=== PATIENT | female | born 1975 | race African-American/Black ===

== ENCOUNTER 2016-09-05 00:52 | Emergency (ER) | payer OTHER ==
[~2016-09-05] VITALS: Ht 162.6 cm; Wt 73.8 kg
[~2016-09-05 00:52] MED LIST: NOHOMEMEDS
[2016-09-05 02:13] LABS: HEMATOCRIT 38.8 % (36.0-46.0); MCH 28.7 PG (29.0-34.0); MCHC 33.2 G/DL (30.0-36.0); MCV 86.2 FL (83-99); RBC DIS.WIDTH-CV 12.9 % (11.8-14.6); RBC DIS.WIDTH-SD 40.5 % (39-53); WHITE BLOOD COUNT 14.4 K/uL (4.1-10.2)
[2016-09-05] MEDS ORDERED: MIRALAX17 GM PO (02:31)
[2016-09-05] MEDS ORDERED: COLACE100 MG PO (02:31)
[2016-09-05 02:33] LABS: CHLORIDE 104 mEq/L (99-109); POTASSIUM 3.7 mEq/L (3.7-5.4); SODIUM 136 mEq/L (136-147)
[2016-09-05 02:35] LABS: GLUCOSE 104 mg/dL (70-99)
[2016-09-05 02:36] LABS: ANION GAP 13 MEQ/L (2-14)
[2016-09-05 02:39] LABS: GFR ESTIMATE (CALCULATED) > 59 mL/min/
[2016-09-05 02:40] LABS: UREA NITROGEN (BUN) 10 mg/dL (9-23)
[2016-09-05 02:48] LABS: MEAN PLAT.VOLUME 9.6 uM^3 (9.5-12.4); PLAT.SUFFICIENCY ADEQUATE; PLATELET COUNT 242 K/uL (156-360)
[2016-09-05 02:49] LABS: QUANTITATIVE HCG < 4.0 MIU/ML
[2016-09-05 02:50] VITALS: BP 133/78
== END 2016-09-05 02:51 | disposition home or self-care (01) ==
LOC: EME 00:52
PROVIDERS: Physician Assistant
DX: K59.00 Constipation, unspecified (principal); F17.200 Nicotine dependence, unspecified, uncomplicated
CPT/HCPCS: 80048; 81003; 84702; 85027; 99281; 99284